=== PATIENT | male | born 1965 | race Caucasian/White ===

== ENCOUNTER 2016-06-27 11:39 | Emergency (ER) | payer OTHER ==
[~2016-06-27] VITALS: Ht 180.3 cm; Wt 131.5 kg
[2016-06-27] MEDS ORDERED: SULFAMETH/TRIMETH 800/160 MG 1 UDTAB TABLET PO ONE ×2 (12:00)
[2016-06-27 12:30] VITALS: BP 120/81
== END 2016-06-27 12:30 | disposition home or self-care (01) ==
LOC: EDUNIT# 11:39 → ER 11:41
DX: L02.415 Cutaneous abscess of right lower limb (principal)
CPT/HCPCS: 99284; A4606; Z7610